=== PATIENT | male | born 1990 | race African-American/Black ===

== ENCOUNTER 2016-11-23 02:53 | Emergency (ER) | payer SELFPAY ==
[~2016-11-23] VITALS: Ht 185.4 cm; Wt 98.0 kg
[2016-11-23 02:58] VITALS: BP 150/102
== END 2016-11-23 06:08 | disposition left against medical advice (07) ==
LOC: ER 02:53
DX: H92.01 Otalgia, right ear (principal); Z53.21 Procedure and treatment not carried out due to patient leaving prior to being seen by health care provider